=== PATIENT | male | born 1970 | race Caucasian/White ===

== ENCOUNTER 2017-07-07 11:08 | Inpatient (IN) | payer OTHER ==
[~2017-07-07] VITALS: Ht 175.3 cm; Wt 97.1 kg
[2017-07-07] MEDS ORDERED: MOM 30ML SUSPENSION UDC PO PRN (11:30)
[2017-07-07] MEDS ORDERED: MAALOX 30 ML SUSP *UDC PO PRN (11:30)
[2017-07-07] MEDS ORDERED: BISACODYL 10 MG SUPP PR PRN (11:30)
[2017-07-07 14:30] VITALS: BP 151/82
[2017-07-07] MEDS ORDERED: ACET1TAB17 PO (14:55)
[2017-07-07] MEDS ORDERED: BACI50OI EXT (14:55)
[2017-07-07] MEDS ORDERED: BISA10SU4 PR (14:59)
[2017-07-07] MEDS ORDERED: OXYC-517 PO (14:59)
[2017-07-07] MEDS ORDERED: NAPR500T3 PO (14:59)
[2017-07-07] MEDS ORDERED: SENN1TAB10 PO (14:59)
[2017-07-07] MEDS ORDERED: ENOX30IN3 SC (14:59)
[2017-07-07] MEDS ORDERED: GABA-282 PO (14:59)
[2017-07-07] MEDS ORDERED: STOO100C PO (14:59)
[2017-07-07] MEDS: GABAPENTIN 300 MG CAP PO SCH ×2 (15:40→21:31)
[2017-07-07] MEDS: oxyCODONE 5MG TAB PO PRN ×2 (15:41→22:23)
[2017-07-07 20:15] VITALS: BP 144/74
[2017-07-07] MEDS: NAPROXEN 250 MG TAB PO SCH (21:31)
[2017-07-07] MEDS: FERROUS GLUCONATE 324 MG TAB PO SCH (21:32)
[2017-07-07] MEDS: ENOXAPARIN 30 MG/0.3 ML SYR (J1650) SC SCH (21:32)
[2017-07-07] MEDS: DOCUSATE SODIUM 100 MG CAP PO SCH (21:33)
[2017-07-07] MEDS: SENNA 8.6 MG TAB (SENOKOT) PO SCH (21:55)
[2017-07-08 06:00] VITALS: BP 139/88
[2017-07-08] MEDS: GABAPENTIN 300 MG CAP PO SCH ×3 (06:14→21:50)
[2017-07-08] MEDS: traMADol ER 100MG TABLET (ULTRAM ER) PO SCH (06:14)
[2017-07-08 07:18] LABS: BASO % 0.3 % (0.0-1.0); EOS # 0.1 K/mm3 (0.0-0.50); EOS % 1.4 % (0.0-3.0); LARGE UNSTAINED CELL # 0.2 K/mm3 (0.0-0.4); LARGE UNSTAINED CELL % 2.5 % (0.0-4.0); LYMPH # 3.7 K/mm3 (1.5-4.5); LYMPH % 38.6 % (24.0-44.0); MEAN CORPUSCULAR HGB CONC 32.1 g/dl (32.0-36.5); MEAN CORPUSCULAR VOLUME 90.2 fl (80.0-96.0); MONO # 0.3 K/mm3 (0.0-0.8); MONO % 3.5 % (0.0-5.0); NEUTROPHILS # 4.9 K/mm3 (1.8-7.7); NEUTROPHILS % 53.7 % (36.0-66.0); PLATELET COUNT, AUTOMATED 772 k/mm3 (150-450); RED CELL DISTRIBUTION WIDTH 14.6 % (11.5-14.5); WHITE BLOOD COUNT 9.1 K/mm3 (4.0-10.0)
[2017-07-08 07:35] LABS: ALBUMIN 2.5 GM/DL (3.2-5.2); ALBUMIN/GLOBULIN RATIO 0.96 (1.00-1.93); ALKALINE PHOSPHATASE 122 U/L (45-117); ALT/SGPT 77 U/L (12-78); ANION GAP 10 MEQ/L (8-16); AST/SGOT 53 U/L (15-37); BILIRUBIN,TOTAL 0.5 MG/DL (0.2-1.0); BLOOD UREA NITROGEN 13 MG/DL (7-18); CALCIUM LEVEL 8.5 MG/DL (8.5-10.1); CARBON DIOXIDE LEVEL 25 MEQ/L (21-32); CHLORIDE LEVEL 110 MEQ/L (98-107); CREATININE FOR GFR 0.64 MG/DL (0.70-1.30); GLOMERULAR FILTRATION RATE > 60.0 (>60); GLUCOSE, FASTING 103 MG/DL (70-105); POTASSIUM SERUM 4.2 MEQ/L (3.5-5.1); SODIUM LEVEL 145 MEQ/L (136-145); TOTAL PROTEIN 5.1 GM/DL (6.4-8.2)
[2017-07-08] MEDS: NAPROXEN 250 MG TAB PO SCH ×2 (08:31→19:08)
[2017-07-08] MEDS: DOCUSATE SODIUM 100 MG CAP PO SCH ×2 (08:31→21:50)
[2017-07-08] MEDS: ENOXAPARIN 30 MG/0.3 ML SYR (J1650) SC SCH ×2 (08:31→21:50)
[2017-07-08] MEDS: ACETAMINOPHEN TAB 650MG DOSE (2X325MG) PO PRN ×3 (08:32→21:50)
[2017-07-08] MEDS: FERROUS GLUCONATE 324 MG TAB PO SCH ×2 (08:32→21:50)
[2017-07-08] MEDS: MULTIVITAMINS/MINERALS THERAP 1 TAB PO SCH (08:32)
[2017-07-08] MEDS: oxyCODONE 5MG TAB PO PRN (10:42)
--- NOTE | 2017-07-08 11:56 | PMRHPE ---
DATE OF ADMISSION: 07/07/2017 REASON FOR ADMISSION: Rehabilitation of traumatic left above-knee amputation (AKA) with multiple secondary trauma. 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 The patient also sustained left rib fracture, as well as multiple abrasions and contusions. On arrival at the emergency room, the patient had a Ann-Marie coma scale of 15 and was reported to be agitated and having hit his head but no reported loss of consciousness by the patient or those around him. The patient initially had a saphenous vein graft placed to try to save the lower leg ; however, this was not successful and the patient went to initial guillotine above-knee amputation on 06/30/2017and allowed granulation tissue to develop and then with a wound VAC in place and on 07/04/2017, had revision to a formed left above-knee amputation following irrigation, debridement and closure. Patient with secondary problems of anemia, as well as periods of hyperglycemia, which was felt to possibly be new onset diabetes versus stress reaction, which the patient reports he believes it is. The patient has been able to and willing and participating well in physical and occupational therapy and is felt to be able to participate and benefit from amputation rehabilitation and was admitted here to the [facility] acute rehabilitation unit today for a trial of rehabilitation, including physical and occupational therapy. Patient with two puncture wounds to the left thigh, nondisplaced nasal fracture, possible early onset type 2 diabetes mellitus, rib fracture and multiple abrasions. Patient also noted with traumatic hemorrhage of left cerebrum, traumatic hemorrhagic shock and anemia due to acute blood loss that was also severe requiring transfusion and contusion of the right frontal lobe. PAST MEDICAL HISTORY: Negative except for the patient uses reading glasses for visual correction. FAMILY HISTORY: Cancer in the mother. Diabetes in the father. SOCIAL HISTORY: Patient is a nonsmoker; however, does use smokeless tobacco and occasional alcohol use. No illicit drugs. ALLERGIES: No known allergies. MEDICATIONS ON ADMISSION: - Tylenol - Mylanta started here for dyspepsia as needed - Dulcolax for bowel program - Colace for bowel program - Lovenox for deep vein thrombosis (DVT) prevention - iron gluconate for anemia - gabapentin 300 mg every 8 hours for pain and nerve trauma - Milk of Magnesia for constipation - multivitamin for wound healing, started here. - Naprosyn 500 mg twice a day for pain - oxycodone 5 mg for moderate pain, 10 mg for severe pain every 4 hours as needed - Senna two tablets at bedtime for bowel program - Patient being started here on tramadol 200 mg of extended release daily at 6: 00 a.m. SOCIAL HISTORY: The patient lives with his in [place], [place]. 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 REVIEW OF SYSTEMS: Patient noting the pain and having phantom sensations with incisional pain of his AKA, as well as left rib pain and shoulder pain. Otherwise, negative 11-point review of systems except for what was noted above. PHYSICAL EXAMINATION: The patient is a muscular young white male who is alert and well oriented. Speech is clear, coherent and appropriate. The patient is approximately average height. He weighs 97.1 kg and is only mildly overweight. Vital Signs: Show temperature 99.2, blood pressure 151/82, pulse 108, respirations 19 and pulse oximetry 97% on room air. These were taken shortly after the patient's transition up to the floor and into the room, and heart rate was reduced by the time I examined him later. HEENT: Essentially normal, cephalic, atraumatic except for some week and a half old contusions and mild abrasions that have principally cleared. Pupils are equal, round, reactive to light and accommodation. Extraocular motions are intact. Pupils are approximately 4 mm in diameter. The patient is noted that in tracking close to have trouble with transition and have one beat nystagmus in trying to refocus. However, this disappears when the tracking object is moved further away. Hearing is intact. Oropharynx is without lesions. Tongue is midline. There is no facial asymmetry. NECK: Supple. Thyroid is smooth, firm and of normal size. LUNGS: Clear in all manley to auscultation. CORONARY: Shows a regular rate and rhythm with normal S1, S2 and 2/4 radial pulses and rate of approximately 85. On AP and lateral compression, the patient has focal pain into the left T7-9 rib area in the midline of the axilla. ABDOMEN: Very mildly obese. Bowel sounds are present in all quadrants. No palpable tenderness or masses. EXTREMITIES: Show good shape and strength formation in bilateral upper, right lower extremity. Left lower extremity shows a recent left above-knee amputation that has fairly good shape, though has moderate mild edema present. There are two open stab or puncture wounds in the left thigh. The lower one is probably from the surgical drain, the more proximal one about mid thigh is from the tree. Patient also with a tape burn on the lateral proximal thigh that is approximately 3 cm in diameter. The incision line itself is intact, stapled together with no drainage, having been covered with a Xeroform dressing and dry gauze underneath a basket weave Darnell wrap in a [id number]. Sensation is good, perfusion is good in the extremity, and it is only mildly sensitive to light touch or pain and tenderness Motor is intact in bilateral upper and right lower extremity. Light touch is intact in bilateral upper extremity and right lower extremity. Sitting balance is good. The patient is alert and oriented to person, place, time, situation and affect, while slightly anxious, is in general, pleasant and cooperative and the patient on arrival was in some significant pain from the trip and this is markedly reduced after he received medications and I saw him back for his physical evaluation. He has been pleasant and cooperative with staff. ASSESSMENT/PLAN: 1. Rehabilitation of left above-knee amputation (AKA): Will go ahead and start the patient on a program of physical and occupational therapy. Will continue using Darnell wrap through the weekend and then will transition to a director product management on Monday. Consult has been sent for Mr. Whitfield to come and evaluate the patient and provide appropriate director product management, as well as some amputee education. The patient will have desensitization training with physical therapy (PT) and occupational therapy (OT), as well as adaptive mobility using walker and wheelchair for now. Crutch gaiting will not proceed at this point as the patient has left rib fractures and axillary crutch would be inappropriate for that. The patient will also be reviewed and watched by rehabilitation nursing and physiatry and have his care, of course, adjusted accordingly. 2. Severe hemorrhagic anemia due to the trauma. Will continue to monitor this and blood pressures. Medicine consult has been sent for this along with other medical problems and will follow with us. 3. Probable new onset type 2 diabetes. At this time, we will have the patient on a consistent carbohydrate diet and do fingerstick before food and nightly blood sugars. If blood sugar is notably elevated, house staff or doctor automation qa lead will be notified and these will be treated as appropriate. 4. Metabolic acidosis. Will get further assessment and watch this. Of course, the patient had a significant amount of tissue damage in this event, and we will go ahead and watch renal as well as metabolic function with comprehensive metabolic panel. POST-ADMISSION PHYSICIAN EVALUATION: The patient is consistent with preadmission screen, and, in fact, looks to be better than would be anticipated for the horrendous injury and nearly bleeding to that he went through a week and a half ago. I do feel he will be able to participate in the 3 hours of therapy per day and notably benefit from it, and be able to make the transition to returning home with his . He will learn preprosthetic amputee training, as well as undergo medical care for the medical problems caused by the trauma. I feel his prognosis is good and his estimated length of stay is 7-10 days as I feel he will do well with adaptic mobility and activities of daily living (ADLs). Time spent on chart review, history and physical and documentation: Greater than 70 minutes. MANUEL
[2017-07-08 14:00] VITALS: BP 120/64
[2017-07-08 20:03] VITALS: BP 151/82
[2017-07-08] MEDS: SENNA 8.6 MG TAB (SENOKOT) PO SCH (21:00)
[2017-07-08] MEDS: RAMELTEON 8 MG TAB (ROZEREM) PO SCH (21:51)
[2017-07-09] MEDS: traMADol ER 100MG TABLET (ULTRAM ER) PO SCH (05:18)
[2017-07-09] MEDS: GABAPENTIN 300 MG CAP PO SCH ×3 (05:18→20:14)
[2017-07-09 05:26] VITALS: BP 134/92
[2017-07-09] MEDS: DOCUSATE SODIUM 100 MG CAP PO SCH ×2 (08:16→20:14)
[2017-07-09] MEDS: MULTIVITAMINS/MINERALS THERAP 1 TAB PO SCH (08:16)
[2017-07-09] MEDS: NAPROXEN 250 MG TAB PO SCH ×2 (08:16→17:16)
[2017-07-09] MEDS: FERROUS GLUCONATE 324 MG TAB PO SCH ×2 (08:16→20:14)
[2017-07-09] MEDS: ENOXAPARIN 30 MG/0.3 ML SYR (J1650) SC SCH ×2 (08:17→20:13)
[2017-07-09] MEDS: oxyCODONE 5MG TAB PO PRN (09:59)
[2017-07-09 14:00] VITALS: BP 128/82
[2017-07-09 20:00] VITALS: BP 138/69
[2017-07-09] MEDS: SENNA 8.6 MG TAB (SENOKOT) PO SCH (20:14)
[2017-07-09] MEDS: ACETAMINOPHEN TAB 650MG DOSE (2X325MG) PO PRN (20:28)
[2017-07-09] MEDS: RAMELTEON 8 MG TAB (ROZEREM) PO SCH (21:16)
[2017-07-10] MEDS: oxyCODONE 5MG TAB PO PRN ×2 (01:55→09:20)
[2017-07-10 06:00] VITALS: BP 133/88
[2017-07-10] MEDS: GABAPENTIN 300 MG CAP PO SCH ×3 (07:15→21:49)
[2017-07-10] MEDS: traMADol ER 100MG TABLET (ULTRAM ER) PO SCH (07:15)
[2017-07-10 08:31] LABS: MEAN CORPUSCULAR HEMOGLOBIN 28.6 pg (27.0-33.0); MEAN CORPUSCULAR HGB CONC 31.5 g/dl (32.0-36.5); MEAN CORPUSCULAR VOLUME 90.6 fl (80.0-96.0); RED CELL DISTRIBUTION WIDTH 14.7 % (11.5-14.5); WHITE BLOOD COUNT 8.1 K/mm3 (4.0-10.0)
[2017-07-10] MEDS: ENOXAPARIN 30 MG/0.3 ML SYR (J1650) SC SCH ×2 (09:14→21:49)
[2017-07-10] MEDS: FERROUS GLUCONATE 324 MG TAB PO SCH ×2 (09:14→21:49)
[2017-07-10] MEDS: MULTIVITAMINS/MINERALS THERAP 1 TAB PO SCH (09:14)
[2017-07-10] MEDS: DOCUSATE SODIUM 100 MG CAP PO SCH ×2 (09:14→21:49)
[2017-07-10] MEDS: NAPROXEN 250 MG TAB PO SCH ×2 (09:15→17:33)
--- NOTE | 2017-07-10 09:41 | CR.PDOC ---
[facility] Consultation Consultation CONSULTATION REPORT FOR: Dr Avendano REASON FOR CONSULTATION: Medical Management DATE OF VISIT: 07/10/17 ATTENDING: Dr. Ronak Broussard PCP: none HPI: 47year old M transferred from [facility] to the care of Dr Juan Alberto [facility] 07/07/17. 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 Subsequently had vein graft 06/26/17, Left AKA 06/30/17 and Revision left AKA . Also sustained Rt frontal lobe contusion, left sided rib fractures, left scapular fracture, and nasal bone fracture without displacement. No acute medical complaints today. Denies any fevers, chills, weakness, fatigue , Headache, Chest Pain, Shortness of breath, cough, palpitations, abdominal pain , N/V/D or changes in bowel or bladder habits. 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 ROS: As noted in HPI, otherwise 11pt ROS of systems reviewed and remarkable only for pain which he states is controlled with his medications. States he has chronic insomnia. PE: GEN: 47yoM, appears stated age. Well-nourished, well developed. No acute distress. Alert and oriented x 3. Pleasant, interactive. HEENT: Normocephalic, atraumatic. Extraocular movements are intact. No nystagmus appreciated. Sclera are nonicteric. Conjunctiva without injection. Nose midline. Nasal turbinates without bogginess. No facial asymmetry. Moist mucous membranes. Dentition fair. Pharynx pink and moist. Neck supple, trachea midline. CHEST: Regular rate and rhythm, +S1, +S2 LUNGS: Clear to auscultation bilaterally. No wheezes, rales, or rhonchi. Breathing appears symmetric and easy. Patient is speaking in full sentences. No accessory muscle use. ABD: Round, soft, non-tender, non-distended. +Bowel sounds throughout. No rebound or guarding. No costovertebral angle tenderness. EXT: No lower extremity edema appreciated. S/P Left AKA. SKIN: [place], dry, warm. No rashes. NEURO: Alert and oriented x 3. Cranial nerves III-XII are intact. No focal deficits appreciated. A&P: 47year old M transferred from [facility] to the care of Dr Juan Alberto [facility] 07/07/17. 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 Subsequently had vein graft 06/26/17, Left AKA 06/30/17 and Revision left AKA . Also sustained Rt frontal lobe contusion, left sided rib fractures, left scapular fracture, and nasal bone fracture without displacement. 1. S/P trauma from logging accident/Left AKA/frontal lobe contusion/rib fractures/scapular fracture/nasal bone fracture. Mgmt as per Dr Avendano. PT/OT/ST as per Dr Avendano. Pain control as per Dr Avendano. Bowel care as per Dr Avendano. DVT prophylaxis as per Dr Avendano. Outpt F/U with orthopedics/vascular/neurosurgery/ENT/PCP as per D/C instructions. 2. Acute blood loss anemia. Cont fe supplement. Hgb stable. Continue to monitor labs. 3. insomnia. Trazodone prn. 4. Elevated AST. Recheck CMP in Am. 5. IFG. No prior dx of DM. Check fasting CMP/A1c in AM. CC diet. 6. thrombocytosis. Likely reactive. Monitor Plt. Thank you for your consultation. We will continue to follow along with you. Vital Signs/I&O Vital Signs Date Time Temp Pulse Resp B/P (MAP) Pulse Ox O2 Delivery O2 Flow Rate FiO2 07/10/17 09:20 18 Room Air 07/10/17 06:00 98.2 94 133/88 (103) 95 I&O- Last 24 Hours up to 6 AM 07/10/17 06:00 Intake Total 2040 ml Output Total 1250 ml Balance 790 ml Laboratory Data Labs 24H Laboratory Tests 2 07/09/17 11:17: Bedside Glucose (Misc Panel) 94 07/09/17 16:15: Bedside Glucose (Misc Panel) 107H 07/09/17 20:15: Bedside Glucose (Misc Panel) 150H 07/10/17 06:34: Bedside Glucose (Misc Panel) 119H CBC/BMP Laboratory Tests 07/10/17 06:59 Red Blood Count 3.29 L, Mean Corpuscular Volume 90.6, Mean Corpuscular Hemoglobin 28.6, Mean Corpuscular Hemoglobin Concent 31.5 L, Red Cell Distribution Width 14.7 H Allergies Coded Allergies: No Known Allergies (Unverified , 07/07/17) Home Medications Scheduled Bacitracin (Bacitracin) 500 Unit/Gm Oin, 1 DOSE EXT DAILY, (Reported) APPLIES TO ABRASIONS Docusate Sodium (Stool Softener) 100 Mg Cap, 100 MG PO BID, (Reported) Enoxaparin Sodium (Enoxaparin Sodium) 30 Mg/0.3 Ml Inj, 30 MG SC Q12H, (Reported ) Gabapentin (Gabapentin) 300 Mg Cap, 300 MG PO TID, (Reported) Naproxen (Naproxen) 500 Mg Tab, 500 MG PO BID, (Reported) Senna (Senna Lax) 8.6 Mg Tab, 2 TAB PO QHS, (Reported) Scheduled PRN Acetaminophen (Acetaminophen) 325 Mg Tab, 650 MG PO Q6H PRN for PAIN, (Reported) Bisacodyl (Bisacodyl) 10 Mg Sup, 10 MG W[place] DAILY PRN for CONSTIPATION, (Reported) Oxycodone HCl (Oxycodone HCl) 5 Mg Tab, 5 MG PO Q4H PRN for PAIN, (Reported) Olimpia Tijerina Jul 10, 2017 09:41
[2017-07-10 14:00] VITALS: BP 131/82
--- NOTE | 2017-07-10 17:42 | IPNPDOC ---
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 The patient also sustained left rib fracture, as well as multiple abrasions and contusions. Patient is status post left AKA on 07/04/17. Patient notes fairly good pain control and overall feels good and is noted to be working hard in therapy. ALLERGIES: See Below MEDICATIONS: Reviewed, see below. OBJECTIVE: VITAL SIGNS: Please see below. PHYSICAL EXAMINATION: GENERAL: Well-nourished well-developed slightly overweight young white male, who is alert and oriented 4. Patient appears to be in very mild musculoskeletal distress. HEENT: Normocephalic/atraumatic except for a few abrasions. CARDIOVASCULAR: Regular rate and rhythm with normal S1-S2 without S3-S4 murmurs or rubs. 2 out 4 bilateral radial pulses. LUNGS: All manley clear to auscultation. ABDOMEN: Benign with normal bowel sounds in all quadrants. NEUROLOGICAL: Patient in good spirits and showing good learning and adaption skills in therapy. He is making fairly good adjustment to right leg only balance using walker and showing marked gains in ambulation with the frontwheel walker. Motor is 5 out of 5 bilateral upper and right lower extremity. Good thigh range of motion on the left and control at the hip. SKIN: AKA incision healing well without significant drainage or inflammation. Right saphenous vein donor site with some eschar but no drainage heat, erythema or other inflammation. LABORATORY DATA: Reviewed. Please see below. MICROBIOLOGY: Please see below. IMAGING: No new imaging. DVT prophylaxis ordered?: Lovenox and SHARIF hose on right lower extremity. ASSESSMENT AND PLAN: 1. Rehabilitation of right knee amputation: Patient is doing very well in training and physical occupational therapy through this week and showing significant gains. Does have some found sensation and is just starting with desensitizing the leg. We need to improve shaping of the residual limb and Mr. Whitfield has adapted some of our mustapha wraps to appropriate length to get their basket weave wrap in a figure 8 to achieve this. Patient not quite ready for stump wool cleaner at this time but overall healing well and should get there soon. Rehabilitation team rounds: In light of patient's rapid progress in physical occupational therapy are anticipated date of discharge will be 07/13/17 to home. 2. Anemia: Currently moderate with hemoglobin 9.4 and hematocrit 29.8%. Of note it appears to be a stress reaction with platelets of 804K. We will continue to monitor with CBCs. 3. Hyperglycemia: Patient is done very well through the weekend on a consistent carbohydrate diet keeping his before meals and at bedtime blood sugars under good control. I will go ahead and discontinue this 4 times a day monitoring. TIME SPENT: Chart Review, examination and documentation required greater than 25 minutes. Allergies Coded Allergies: No Known Allergies (Unverified , 07/07/17) Vital Signs Vital Signs Date Time Temp Pulse Resp B/P (MAP) Pulse Ox O2 Delivery O2 Flow Rate FiO2 07/10/17 14:00 98.4 98 18 131/82 (98) 96 Room Air Laboratory Data CBC/BMP Laboratory Tests 07/10/17 06:59 Red Blood Count 3.29 L, Mean Corpuscular Volume 90.6, Mean Corpuscular Hemoglobin 28.6, Mean Corpuscular Hemoglobin Concent 31.5 L, Red Cell Distribution Width 14.7 H Labs 24H Laboratory Tests 2 07/09/17 20:15: Bedside Glucose (Misc Panel) 150H 07/10/17 06:34: Bedside Glucose (Misc Panel) 119H Current Medications Current Medications Current Medications Acetaminophen (Tylenol Tab) 650 mg Q6HP PRN PO PAIN OR FEVER Last administered on 07/09/17t 20:28; Start 07/07/17 at 11:30; Stop 08/06/17 at 11:29 Al Hydrox/Mg Hydrox/Simethicone (Mylanta) 30 ml Q4HP PRN PO DYSPEPSIA; Start at 11:30; Stop 08/06/17 at 11:29 Bisacodyl (Dulcolax Suppository) 10 mg DAILYPRN PRN MD CONSTIPATION; Start 10/13 at 11:30; Stop 08/06/17 at 11:29 Docusate Sodium (Colace) 100 mg BID PO Last administered on 07/10/17 09:14; Start 07/07/17 at 21:00; Stop 08/06/17 at 20:59 Enoxaparin Sodium (Lovenox) 30 mg BID SC Last administered on 07/10/17 09:14; Start 07/07/17 at 21:00; Stop 07/17/17 at 23:55 Ferrous Gluconate (Fergon) 324 mg BID PO Last administered on 07/10/17 09:14; Start 07/07/17 at 21:00; Stop 08/06/17 at 20:59 Gabapentin (Neurontin) 300 mg Q8H PO Last administered on 07/10/17 14:26; Start 07/07/17 at 14:00; Stop 08/06/17 at 13:59 Home Med (Med Rec Complete!) ASDIRECTED XX ; Start 07/07/17 at 15:00; Stop 10/13 at 15:04; Status DC Magnesium Hydroxide (Milk Of Magnesia) 30 ml DAILYPRN PRN PO CONSTIPATION; Start 07/07/17 at 11:30; Stop 08/06/17 at 11:29 Multivitamins (Theragram-M) 1 tab DAILY PO Last administered on 07/10/17 09:14 ; Start 07/08/17 at 09:00; Stop 08/07/17 at 08:59 Naproxen (Naprosyn) 500 mg BID PO Last administered on 07/08/17 08:31; Start 07/07/17 at 21:00; Stop 07/08/17 at 18:44; Status DC Naproxen (Naprosyn) 500 mg BIDWM PO Last administered on 07/10/17 09:15; Start 07/08/17 at 18:00; Stop 08/07/17 at 17:59 Oxycodone HCl (Roxicodone, Oxyir) 5 mg Q4HP PRN PO MODERATE PAIN (PS 5-7) Last administered on 07/10/17 09:20; Start 07/07/17 at 11:30; Stop 07/14/17 at 11:29 Oxycodone HCl (Roxicodone, Oxyir) 10 mg Q4HP PRN PO SEVERE PAIN (PS 8-10) Last administered on 8/11/17at 22:23; Start 07/07/17 at 11:30; Stop 07/14/17 at 11:29 Ramelteon (Rozerem) 8 mg QHS PO Last administered on 07/09/17 21:16; Start 11/12 at 21:00; Stop 07/10/17 at 10:20; Status DC Senna (Senokot) 2 tab QHS PO Last administered on 07/09/17 20:14; Start at 21:00; Stop 08/06/17 at 20:59 Tramadol HCl (Ultram Er) 200 mg DAILY@0600 PO Last administered on 07/10/17 07 :15; Start 07/08/17 at 06:00; Stop 07/15/17 at 05:59 Trazodone HCl (Desyrel) 100 mg QHSP PRN PO INSOMNIA; Start 07/10/17 at 10:30; Stop 08/09/17 at 10:29 ERIBERTO JONES MD Jul 10, 2017 17:42
[2017-07-10 20:00] VITALS: BP 137/68
[2017-07-10] MEDS: ACETAMINOPHEN TAB 650MG DOSE (2X325MG) PO PRN (21:49)
[2017-07-10] MEDS: traZODone 100 MG TAB PO PRN (21:49)
[2017-07-10] MEDS: SENNA 8.6 MG TAB (SENOKOT) PO SCH (21:49)
[2017-07-11 06:00] VITALS: BP 162/84
[2017-07-11] MEDS: GABAPENTIN 300 MG CAP PO SCH ×3 (06:13→21:49)
[2017-07-11] MEDS: traMADol ER 100MG TABLET (ULTRAM ER) PO SCH (06:13)
[2017-07-11 06:46] VITALS: BP 142/88
[2017-07-11 07:55] LABS: BASO % 0.4 % (0.0-1.0); EOS # 0.1 K/mm3 (0.0-0.50); LARGE UNSTAINED CELL # 0.3 K/mm3 (0.0-0.4); LYMPH # 3.9 K/mm3 (1.5-4.5); LYMPH % 43.2 % (24.0-44.0); MEAN CORPUSCULAR HEMOGLOBIN 28.8 pg (27.0-33.0); MEAN CORPUSCULAR HGB CONC 31.6 g/dl (32.0-36.5); MEAN CORPUSCULAR VOLUME 91.1 fl (80.0-96.0); MONO # 0.4 K/mm3 (0.0-0.8); NEUTROPHILS % 47.4 % (36.0-66.0); PLATELET COUNT, AUTOMATED 874 k/mm3 (150-450); RED CELL DISTRIBUTION WIDTH 14.9 % (11.5-14.5); WHITE BLOOD COUNT 8.5 K/mm3 (4.0-10.0)
[2017-07-11 08:14] LABS: ALBUMIN 2.9 GM/DL (3.2-5.2); ALBUMIN/GLOBULIN RATIO 0.91 (1.00-1.93); ALKALINE PHOSPHATASE 146 U/L (45-117); ALT/SGPT 79 U/L (12-78); ANION GAP 10 MEQ/L (8-16); AST/SGOT 41 U/L (15-37); BILIRUBIN,TOTAL 0.5 MG/DL (0.2-1.0); BLOOD UREA NITROGEN 16 MG/DL (7-18); CALCIUM LEVEL 8.9 MG/DL (8.5-10.1); CARBON DIOXIDE LEVEL 24 MEQ/L (21-32); CHLORIDE LEVEL 110 MEQ/L (98-107); GLOMERULAR FILTRATION RATE > 60.0 (>60); GLUCOSE, FASTING 106 MG/DL (70-105); SODIUM LEVEL 144 MEQ/L (136-145); TOTAL PROTEIN 6.1 GM/DL (6.4-8.2)
[2017-07-11] MEDS: MULTIVITAMINS/MINERALS THERAP 1 TAB PO SCH (08:50)
[2017-07-11] MEDS: NAPROXEN 250 MG TAB PO SCH ×2 (08:50→17:52)
[2017-07-11] MEDS: FERROUS GLUCONATE 324 MG TAB PO SCH ×2 (08:50→21:49)
[2017-07-11] MEDS: DOCUSATE SODIUM 100 MG CAP PO SCH ×2 (08:50→21:49)
[2017-07-11] MEDS: ENOXAPARIN 30 MG/0.3 ML SYR (J1650) SC SCH ×2 (08:50→21:49)
[2017-07-11 11:13] LABS: FERRITIN 600 NG/ML (26-388); PERCENT SATURATION 17.4 % (19.7-50.0); TOTAL IRON BINDING CAPACITY 265 UG/DL (250-450)
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
[2017-07-11 12:07] LABS: FOLATE 15.1 NG/ML
[2017-07-11] MEDS: oxyCODONE 5MG TAB PO PRN (12:15)
[2017-07-11 14:00] VITALS: BP 153/87
[2017-07-11 21:30] VITALS: BP 154/85
[2017-07-11] MEDS: traZODone 100 MG TAB PO PRN (21:49)
[2017-07-11] MEDS: SENNA 8.6 MG TAB (SENOKOT) PO SCH (21:49)
[2017-07-11] MEDS: ACETAMINOPHEN TAB 650MG DOSE (2X325MG) PO PRN (21:50)
[2017-07-12 06:00] VITALS: BP 139/91
[2017-07-12] MEDS: GABAPENTIN 300 MG CAP PO SCH ×3 (06:18→21:51)
[2017-07-12] MEDS: traMADol ER 100MG TABLET (ULTRAM ER) PO SCH (06:18)
[2017-07-12 07:18] LABS: BASO % 0.4 % (0.0-1.0); EOS # 0.1 K/mm3 (0.0-0.50); EOS % 0.7 % (0.0-3.0); LARGE UNSTAINED CELL # 0.2 K/mm3 (0.0-0.4); LYMPH # 3.8 K/mm3 (1.5-4.5); LYMPH % 43.4 % (24.0-44.0); MEAN CORPUSCULAR HEMOGLOBIN 28.6 pg (27.0-33.0); MEAN CORPUSCULAR HGB CONC 32.4 g/dl (32.0-36.5); MEAN CORPUSCULAR VOLUME 88.4 fl (80.0-96.0); MONO # 0.4 K/mm3 (0.0-0.8); MONO % 4.7 % (0.0-5.0); NEUTROPHILS # 3.9 K/mm3 (1.8-7.7); NEUTROPHILS % 47.8 % (36.0-66.0); PLATELET COUNT, AUTOMATED 888 k/mm3 (150-450); RED CELL DISTRIBUTION WIDTH 14.9 % (11.5-14.5); WHITE BLOOD COUNT 8.1 K/mm3 (4.0-10.0)
[2017-07-12 07:35] LABS: ALBUMIN/GLOBULIN RATIO 1.07 (1.00-1.93); ALKALINE PHOSPHATASE 148 U/L (45-117); ALT/SGPT 72 U/L (12-78); ANION GAP 10 MEQ/L (8-16); AST/SGOT 33 U/L (15-37); BILIRUBIN,TOTAL 0.5 MG/DL (0.2-1.0); BLOOD UREA NITROGEN 18 MG/DL (7-18); CALCIUM LEVEL 8.3 MG/DL (8.5-10.1); CARBON DIOXIDE LEVEL 24 MEQ/L (21-32); CHLORIDE LEVEL 111 MEQ/L (98-107); CREATININE FOR GFR 0.68 MG/DL (0.70-1.30); GLOMERULAR FILTRATION RATE > 60.0 (>60); GLUCOSE, FASTING 107 MG/DL (70-105); POTASSIUM SERUM 4.2 MEQ/L (3.5-5.1); SODIUM LEVEL 145 MEQ/L (136-145); TOTAL PROTEIN 5.8 GM/DL (6.4-8.2)
[2017-07-12] MEDS: MULTIVITAMINS/MINERALS THERAP 1 TAB PO SCH (08:25)
[2017-07-12] MEDS: ENOXAPARIN 30 MG/0.3 ML SYR (J1650) SC SCH ×2 (08:25→21:52)
[2017-07-12] MEDS: FERROUS GLUCONATE 324 MG TAB PO SCH ×2 (08:25→21:51)
[2017-07-12] MEDS: DOCUSATE SODIUM 100 MG CAP PO SCH ×2 (08:25→21:51)
[2017-07-12] MEDS: NAPROXEN 250 MG TAB PO SCH ×2 (08:26→17:13)
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
[2017-07-12 14:00] VITALS: BP 144/86
[2017-07-12] MEDS: oxyCODONE 5MG TAB PO PRN (14:04)
[2017-07-12 20:00] VITALS: BP 140/84
[2017-07-12] MEDS: traZODone 100 MG TAB PO PRN (21:51)
[2017-07-12] MEDS: SENNA 8.6 MG TAB (SENOKOT) PO SCH (21:52)
[2017-07-13] MEDS: traMADol ER 100MG TABLET (ULTRAM ER) PO SCH (05:50)
[2017-07-13] MEDS: GABAPENTIN 300 MG CAP PO SCH (05:50)
[2017-07-13 06:00] VITALS: BP 140/87
[2017-07-13 07:44] LABS: BASO % 0.6 % (0.0-1.0); EOS # 0.1 K/mm3 (0.0-0.50); EOS % 0.9 % (0.0-3.0); LARGE UNSTAINED CELL # 0.2 K/mm3 (0.0-0.4); LARGE UNSTAINED CELL % 2.9 % (0.0-4.0); LYMPH # 3.3 K/mm3 (1.5-4.5); LYMPH % 41.7 % (24.0-44.0); MEAN CORPUSCULAR HEMOGLOBIN 29.3 pg (27.0-33.0); MEAN CORPUSCULAR HGB CONC 33.1 g/dl (32.0-36.5); MEAN CORPUSCULAR VOLUME 88.4 fl (80.0-96.0); MONO # 0.4 K/mm3 (0.0-0.8); MONO % 5.1 % (0.0-5.0); NEUTROPHILS # 3.6 K/mm3 (1.8-7.7); NEUTROPHILS % 48.7 % (36.0-66.0); PLATELET COUNT, AUTOMATED 839 k/mm3 (150-450); RED CELL DISTRIBUTION WIDTH 14.9 % (11.5-14.5); WHITE BLOOD COUNT 7.3 K/mm3 (4.0-10.0)
[2017-07-13 07:47] LABS: REASON FOR REVIEW COMPREHENSIVE REVIEW
[2017-07-13 08:00] LABS: ALBUMIN 3.2 GM/DL (3.2-5.2); ALBUMIN/GLOBULIN RATIO 1.28 (1.00-1.93); ALKALINE PHOSPHATASE 154 U/L (45-117); ALT/SGPT 67 U/L (12-78); ANION GAP 8 MEQ/L (8-16); AST/SGOT 32 U/L (15-37); BILIRUBIN,TOTAL 0.7 MG/DL (0.2-1.0); BLOOD UREA NITROGEN 16 MG/DL (7-18); CALCIUM LEVEL 8.8 MG/DL (8.5-10.1); CARBON DIOXIDE LEVEL 26 MEQ/L (21-32); CHLORIDE LEVEL 110 MEQ/L (98-107); CREATININE FOR GFR 0.66 MG/DL (0.70-1.30); GLOMERULAR FILTRATION RATE > 60.0 (>60); GLUCOSE, FASTING 112 MG/DL (70-105); POTASSIUM SERUM 4.2 MEQ/L (3.5-5.1); SODIUM LEVEL 144 MEQ/L (136-145); TOTAL PROTEIN 5.7 GM/DL (6.4-8.2)
[2017-07-13] MEDS ORDERED: GABA-282 PO (08:38)
[2017-07-13] MEDS ORDERED: STOO100C PO (08:38)
[2017-07-13] MEDS ORDERED: TRAZ10TA PO (08:38)
[2017-07-13] MEDS ORDERED: OXYC-517 PO (08:38)
[2017-07-13] MEDS ORDERED: TRAM10TAER PO (08:38)
[2017-07-13] MEDS: MULTIVITAMINS/MINERALS THERAP 1 TAB PO SCH (08:39)
[2017-07-13] MEDS: FERROUS GLUCONATE 324 MG TAB PO SCH (08:39)
[2017-07-13] MEDS: ENOXAPARIN 30 MG/0.3 ML SYR (J1650) SC SCH (08:39)
[2017-07-13] MEDS: NAPROXEN 250 MG TAB PO SCH (08:40)
[2017-07-13] MEDS: DOCUSATE SODIUM 100 MG CAP PO SCH (08:40)
[2017-07-13] MEDS: oxyCODONE 5MG TAB PO PRN (10:31)
[2017-07-13] MEDS ORDERED: NAPR500T3 PO (10:52)
--- NOTE | 2017-07-16 06:59 | PMRDS ---
DATE OF ADMISSION: 07/07/2017 DATE OF DISCHARGE: 07/13/2017 DISCHARGE DIAGNOSES: 1. Rehabilitation of left traumatic above-knee amputation status post multiple blunt traumas from tree falling on patient. 2. Patient is status post failed vascular graft to tibia and fibula (tib-fib) fracture of the left lower leg and right saphenous vein graft and then guillotine amputation on 06/30/2017, and then delayed primary closure and revision on 07/04/2017. SECONDARY DIAGNOSES: 1. Blood loss anemia from the trauma. 2. Multiple contusions and abrasions. 3. Left rib fracture. 4. Left scapular fracture. 5. Possible diabetes, new onset of type 2 versus stress reaction. Patient, however, appears to be strictly stress reaction. 6. Nondisplaced nasal fracture status post traumatic hemorrhagic shock. PAST MEDICAL HISTORY: Was negative. 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 The patient then had procedures noted above at [facility] and on 07/07/2017, was felt to have stabilized from the revision left above-knee amputation to start preprosthetic amputation rehabilitation and was transferred to [facility]. PROCEDURES PERFORMED: None. DIAGNOSTIC LABORATORY DATA: Patient's initial hemoglobin and hematocrit 9.3 and 29.0 has transitioned to 10.4 and 31.5. However, platelet count has remained elevated, felt to be stress reaction at 772,000 on arrival, currently 839,000 appearing to have started to trend down. Comprehensive metabolic panel showed normal electrolytes except for chloride elevated at 110 on admission with AST elevated at 53, alkaline phosphatase elevated at 122, albumin diminished at 2.5 and today showing normal electrolytes except for chloride still at 110, mildly elevated fasting blood sugar at 112. Total bilirubin, AST, ALT normal. Alkaline phosphatase elevated at 154, on a chance will trend up, but albumin has come from abnormal 2.5 down to normal at 3.2. HOSPITAL COURSE: Patient admitted on 07/07/2017, started in a program of evaluation with physical therapy, occupational therapy, rehabilitation nursing, physiatry and medicine consultation. Overall, patient has been doing well and has progressed extremely well in therapy, has been working very hard, and has had good pain management. He has progressed to modified independent or supervision in transfers and gaiting home functional distances with a Front Wheeled Walker. He is Modified Independent to Independent with W/C mobility and transfers. Today, his day of discharge, he was found to have a bedbug in his room and has gone through hospital procedures for that prior to his discharge. DISCHARGE MEDICATIONS: - naproxen 500 mg twice a day - tramadol 200 mg of extended release daily - trazodone 100 mg nightly as needed for insomnia, for sleep as well as neurogenic pain benefit - Tylenol 325 mg tablets two tablets every 6 hours as needed for pain - bacitracin ointment to abrasions on the back - Colace 100 mg twice a day - gabapentin 300 mg three times a day - senna 17.2 mg nightly for bowel program - oxycodone 5 mg by mouth every 8 hours as needed for moderate to severe pain, 10 tablets issued for 7 days Patient has been shown incision care, stump wrapping. COMPLICATIONS: None. DISCHARGE PLAN INSTRUCTIONS: Patient is to followup with a new primary care provider within 2 weeks and to followup at [facility] with Dr. Aguero within 1-[address] Aguero feels that neurosurgery or vascular surgery need to follow the patient, he may make that referral. Patient will be receiving home care with home care nursing following anemia and elevated platelets with complete blood count (CBC) and liver function tests, albumin and chloride with basic metabolic panel (BMP) twice a week, along with physical and occupational therapy. Continue work on preprosthetic training. Time spent on discharge greater than 35 minutes. MTDD
== END 2017-07-13 12:15 | disposition home health service (06) | DRG 862 ==
LOC: M PM&R 14:06
PROVIDERS: ADMIT Physical Medicine & Rehabilitation; ATTEND Physical Medicine & Rehabilitation
DX: Z47.81 Encounter for orthopedic aftercare following surgical amputation (principal); E87.2 Acidosis; Z89.612 Acquired absence of left leg above knee; D62 Acute posthemorrhagic anemia; E11.65 Type 2 diabetes mellitus with hyperglycemia; S82.302E Unspecified fracture of lower end of left tibia, subsequent encounter for open fracture type I or II with routine healing; S82.402E Unspecified fracture of shaft of left fibula, subsequent encounter for open fracture type I or II with routine healing; S02.2XXD Fracture of nasal bones, subsequent encounter for fracture with routine healing; S71.132D Puncture wound without foreign body, left thigh, subsequent encounter; S22.32XD Fracture of one rib, left side, subsequent encounter for fracture with routine healing; Y99.0 Civilian activity done for income or pay; V00-Y99 External causes of morbidity; Y92.828 Other wilderness area as the place of occurrence of the external cause; Z79.899 Other long term (current) drug therapy; G47.00 Insomnia, unspecified; F17.220 Nicotine dependence, chewing tobacco, uncomplicated; D47.3 Essential (hemorrhagic) thrombocythemia

== ENCOUNTER → 2017-10-25 | Outpatient (REF) | payer OTHER ==
[~2017-10-25] MED LIST: ACET1TAB17 PO; BACI50OI EXT; BISA10SU4 PR; ENOX30IN3 SC; GABA-282 PO; NAPR500T3 PO; OXYC-517 PO; SENN1TAB10 PO; STOO100C PO; TRAM10TAER PO; TRAZ10TA PO
[2017-10-25 13:53] LABS: REASON FOR REVIEW COMPREHENSIVE REVIEW
== END ==
LOC: M LAB REF 12:10
PROVIDERS: ATTEND Internal Medicine Medical Oncology
DX: D72.820 Lymphocytosis (symptomatic) (principal)

== ENCOUNTER → 2018-08-21 | Outpatient (REF) | payer OTHER ==
[2018-08-21 15:13] LABS: IMMUNOGLOBULIN G 604 MG/DL (681-1648); IMMUNOGLOBULIN M 7 MG/DL (40-230)
== END ==
LOC: M LAB REF 13:32
DX: D64.9 Anemia, unspecified (principal)
CPT/HCPCS: 82784